=== PATIENT | male | born 1995 | race Caucasian/White ===

== ENCOUNTER 2018-03-23 09:49 | Outpatient (CLI) | payer BC ==
--- NOTE | 2018-03-23 11:26 | RAD ---
LEFT HAND THREE VIEWS: History: Injury. Left hand pain. FINDINGS/IMPRESSION: No fracture or dislocation is seen.
== END 2018-03-23 09:50 | disposition home or self-care (01) ==
LOC: BICRAD 09:49
PROVIDERS: ATTEND Family Medicine
DX: S63.8X9A Sprain of other part of unspecified wrist and hand, initial encounter (principal)

== ENCOUNTER 2018-05-18 14:19 | Outpatient (CLI) | payer BC ==
--- NOTE | 2018-05-18 16:17 | CT ---
CT LEFT WRIST WITHOUT CONTRAST: 05/18/18 HISTORY: Closed fracture of the scaphoid. COMPARISON: Radiograph 03/23/18. FINDINGS: There is a small avulsion injury along the volar aspect of the radial tuberosity at the expected loca tion of the radioscaphoid ligament. There is a complete fracture of the scaphoid waist with minimal h ealing along the lateral cortex, although there is a single osseous bridge along the medial cortex. T he proximal pole is more dense than the distal pole. The scapholunate interval is widened with a small avulsion injury of the scapholunate ligament off th e proximal pole of the scaphoid volar margin. Healing fracture of the trapezium, intra-articular wit h a depressed central arterial surface depression. There is also a healing fracture of the base of th e thumb with early secondary osteophyte formation. Trapezoid and capitate are intact as well as the hamate, triquetrum, and pisiform. There is mild dorsal angulation of the lunate with the capitolunate angle at the upper limits of normal. 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 IMPRESSION: 1. Fracture of the waist of the scaphoid with minimal medial osseous bridging at the articular s urface of the capitate without any lateral osseous bridging. 2. Abnormal increased density at the proximal pole of the scaphoid relative to the remainder of the carpus concerning for osteo necrosis. 3. Small avulsion fracture along the volar aspect of the radial styloid at the expected locatio n of the volar radioscaphoid ligament. 4. Volar avulsion of the proximal pole of the scaphoid at the scapholunate ligament with subtle widening of the scapholunate interval. 5. 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 6. Healing intra-articular fracture of the trapezium at the thumb carpometacarpal joint with ear ly secondary osteoarthritic changes. POS: TPC
--- NOTE | 2018-05-18 16:24 | MRI ---
MRI OF LEFT THUMB WITHOUT CONTRAST: 05/18/18 HISTORY: ECL injury. COMPARISON: CT same date. FINDINGS: The radial and ulnar collateral ligaments as well as the accessory radial and ulnar collateral ligame nts of the thumb metacarpophalangeal joint are intact. There is edema throughout the thumb metacarpal diaphysis as well as the metacarpal base as well as th e trapezium second metacarpal base and capitate. This was evaluated on the thumb MRI. This is a fract ure of the scaphoid waist with edema of the distal pole without significant edema of the proximal jc e. There is findings of early dorsal intercalated segment instability. Small osseous avulsion of the volar aspect of the radial styloid with injury of the radioscaphoid ligament. IMPRESSION: 1. Intact ulnar collateral ligament of the thumb. 2. Healing intra-articular fracture of the trapezium. 3. Contusions of the thumb metacarpal base as well as of the index finger metacarpal base and ca pitate. 4. Fracture of the scaphoid waist without significant proximal pole concerning for early osteone crosis. 5. Mild dorsal angulation of the scaphoid with partial tear of the volar scapholunate ligament. POS: TPC
== END 2018-05-18 14:20 | disposition home or self-care (01) ==
LOC: BICCT 14:19
PROVIDERS: ATTEND Orthopaedic Surgery Hand Surgery
DX: S62.012D Displaced fracture of distal pole of navicular [scaphoid] bone of left wrist, subsequent encounter for fracture with routine healing (principal); M85.88 Other specified disorders of bone density and structure, other site; S52.512D Displaced fracture of left radial styloid process, subsequent encounter for closed fracture with routine healing; S53.32XD Traumatic rupture of left ulnar collateral ligament, subsequent encounter

== ENCOUNTER 2018-10-16 07:43 | Outpatient (CLI) | payer BC ==
--- NOTE | 2018-10-16 08:22 | CT ---
CT OF THE LEFT WRIST WITHOUT IV CONTRAST: INDICATION: History of left wrist fracture with nonunion. COMPARISON: Prior CT of the left wrist dated 05/18/2018 and an MRI of the left wrist dated June 23, 2018. FINDINGS: There is no appreciable interval healing involving mid waist scaphoid fracture with worsening scleros is of the proximal pole of the scaphoid suspicious for worsening osteonecrosis. DISI malalignment is seen involving the lunate. There is progressive healing involving the radial styloid process fract ure as well as the intra-articular trapezial fracture. There is some mild secondary osteoarthritic change at the thumb first CMC articulation. IMPRESSION: 1. No appreciable interval healing involving the mid waist scaphoid fracture with worsening proximal pole osteonecrosis. 2. DISI malalignment involving the lunate. 3. Progressive healing of the radial styloid process fracture as well as the intra-articular trapezi um fracture. There has been development of mild secondary osteoarthritic change at the thumb first CMC articulation. Transcribed Date/Time: 10/16/2018 8:43 AM
== END 2018-10-16 07:44 | disposition home or self-care (01) ==
LOC: BICCT 07:43
PROVIDERS: ATTEND Orthopaedic Surgery Hand Surgery
DX: S62.002G Unspecified fracture of navicular [scaphoid] bone of left wrist, subsequent encounter for fracture with delayed healing (principal); S52.512D Displaced fracture of left radial styloid process, subsequent encounter for closed fracture with routine healing